=== PATIENT | female | born 1990 | race Caucasian/White ===

== ENCOUNTER 2017-11-06 20:29 | Emergency (ER) | payer OTHER ==
[~2017-11-06] VITALS: Ht 152.4 cm; Wt 68.0 kg
[2017-11-06 20:48] VITALS: Ht 152.4 cm; Wt 68.0 kg
[2017-11-07 08:58] LABS: BASOPHIL % 0.2 % (0-2); PLATELET COUNT 202 x10^3mcL (130-400); RED CELL DISTRIBUTION WIDTH 12.3 % (11.5-14.5)
[2017-11-07 09:06] LABS: CALCIUM 8.1 mg/dL (8.5-10.1); CARBON DIOXIDE 28.8 mmol/L (21-32); CHLORIDE SERUM 104 mmol/L (98-107); CREATININE SERUM 0.5 mg/dL (0.6-1.0); GFR1 > 60 mL/min; GLUCOSE SERUM 103 mg/dL (74-106); POTASSIUM SERUM 3.9 mmol/L (3.5-5.1); SODIUM SERUM 139 mmol/L (136-145)
[2017-11-07 09:47] VITALS: BP 117/71
== END 2017-11-07 10:05 | disposition home or self-care (01) ==
LOC: ED 20:29
PROVIDERS: Emergency Medicine
DX: K05.219 Aggressive periodontitis, localized, unspecified severity (principal); L03.211 Cellulitis of face
CPT/HCPCS: J1170; J2405; J3490; J7030